=== PATIENT | female | born 1960 | race Caucasian/White ===

== ENCOUNTER 2020-01-29 11:07 | Emergency (ER) | payer BC, OTHER ==
[~2020-01-29] VITALS: Ht 165.1 cm; Wt 68.0 kg
[~2020-01-29 11:07] MED LIST: BUPR-4 PO; DOXY100C46 PO; IBUP800T24 PO; LORA1TAB12 PO; [UNRECOGNIZED DRUG - CODE] PO
[2020-01-29 12:57] LABS: Basophils # (auto) 0 10 ^3/uL (0-0.2); Basophils % (auto) 0.2 % (0.0-2.0); Eosinophils # (auto) 0 10 ^3/uL (0-0.8); Eosinophils % (auto) 0.4 % (0.0-7.0); Hematocrit 41.5 % (36.0-46.0); Hemoglobin 13.4 g/dL (12.2-16.2); Lymphocytes % (auto) 10.8 % (10.0-50.0); Mean Corpuscular Hemoglobin 31.2 pg (28.0-32.0); Mean Corpuscular Hgb Conc. 32.3 g/dL (32.0-36.0); Mean Corpuscular Volume 96.4 fL (80.0-100.0); Monocytes # (auto) 0.5 10 ^3/uL (0-1.3); Monocytes % (auto) 5.4 % (0.0-12.0); Neutrophils # (auto) 7.9 10 ^3/uL (1.6-8.6); Neutrophils % (auto) 83.2 % (37.0-80.0); Platelet Count (auto) 211 10^3/uL (140-450); Red Cell Distribution Width 14.7 % (11.8-14.3); White Blood Cell 9.5 10^3/uL (4.4-10.8)
[2020-01-29 13:09] LABS: Albumin 3.5 g/dL (3.4-5.0); Calcium 8.3 mg/dL (8.5-10.1); Potassium 4.7 mmol/L (3.5-5.1)
[2020-01-29 13:12] LABS: Acetaminophen 4.7 ug/mL (10-30); Salicylate < 1.7 mg/dL (2.8-20.0)
[2020-01-29 13:13] LABS: BUN/Creatinine Ratio 14.1; Bilirubin, Total 0.3 mg/dL (0.2-1.0); Total Protein 6.7 g/dL (6.4-8.2)
[2020-01-29 13:17] LABS: INR 1.01 (0.9-1.15); Partial Thromboplastin Time 21.7 sec (23.64-32.05)
[2020-01-29 13:38] LABS: Urine WBC None Seen /hpf (0 - 5)
[2020-01-29 13:51] LABS: Amphetamine Screen, Urine NEGATIVE (NEGATIVE); Barbiturate Scree,Urine NEGATIVE (NEGATIVE); Benzodiazephine Screen, Urine NEGATIVE (NEGATIVE); Cannabinoid Screen, Urine NEGATIVE (NEGATIVE); Cocaine Screen, Urine NEGATIVE (NEGATIVE); Opiate Scree,Urine POSITIVE (NEGATIVE); Phencyclidine Screen, Urine NEGATIVE (NEGATIVE)
[2020-01-29 14:26] LABS: Urine Bacteria NONE SEEN /hpf (None Seen); Urine Blood Negative /uL (Negative); Urine Specific Gravity 1.009 (1.001-1.035)
[2020-01-29] MEDS ORDERED: TOPI50TA32 PO (18:17)
[2020-01-29] MEDS ORDERED: ESCI20TA PO (18:17)
[2020-01-29] MEDS: TOPIRAMATE 25 MG TAB PO SCH (21:03)
[2020-01-29] MEDS ORDERED: TOPIRAMATE 25 MG TAB PO SCH (22:00)
[2020-01-30] MEDS: CITALOPRAM HYDROBR 20 MG TAB PO SCH ×2 (09:45→10:00)
[2020-01-30] MEDS: TOPIRAMATE 25 MG TAB PO SCH (09:55)
[2020-01-30 10:23] VITALS: BP 101/65
== END 2020-01-30 10:51 | disposition short-term general hospital (02) ==
LOC: EDBD 11:07 → ER 11:07
DX: T42.4X1A Poisoning by benzodiazepines, accidental (unintentional), initial encounter (principal)
CPT/HCPCS: 36415; 71045; 80053; 80307; 80320; 80329; 81001; 83735; 85025; 85610; 85730; 93005